=== PATIENT | male | born 1955 | race Caucasian/White ===

== ENCOUNTER 2023-09-13 16:30 | Outpatient (CLI) | payer MEDICARE, OTHER, SELFPAY ==
--- NOTE | ~2023-09-13 | MR_ITS ---
MRI of the right shoulder Technique: Axial proton-density fat-sat images, coronal proton density fat-sat and T2 fat-sat images, and sagittal T1-weighted and T2 fat-sat images were acquired. Clinical History: Pain Findings: There is [id number] AC joint degenerative change. Coracoclavicular, coracoacromial, a nd coracohumeral ligaments are intact. There is moderate to advanced tendinosis of the supraspinatus and infraspinatus tendons, without defi nite partial or full-thickness tear. Subscapularis tendon is intact, with mild tendinosis. Tendon of long head of the biceps is intact. There is probable degenerative tearing of the superior labrum with anteroposterior extension. There i s probable extension through the anterior labrum at the equator. There is a 5 mm superior para-labral cyst (series 6 image 14, series 4 image 11). There is moderate glenohumeral joint degenerative change, with inferomedial humeral head spur, chondr omalacia extensively involving the glenoid, and focal subchondral cystic change at the inferior gleno id. Inferior glenohumeral ligament is intact. There is small glenohumeral joint effusion. No fluid di stention of the subacromial/subdeltoid bursa. No muscle atrophy or edema. Impression: Degenerative SLAP tear of the labrum with extension to the anterior labrum at the equator. Associated 5 mm superior para-labral cyst, as detailed above. Moderate glenohumeral joint osteoarthritis, as detailed above. Rotator cuff tendinosis without partial or full-thickness tear. [id number] AC joint degenerative change. Reviewed, dictated and finalized at [facility]. Impression: Degenerative SLAP tear of the labrum with extension to the anterior labrum at t he equator. Associated 5 mm superior para-labral cyst, as detailed above. Moderate glenohumeral joint osteoarthritis, as detailed above. Rotator cuff tendinosis without partial or full-thickness tear. [id number] AC joint degenerative change.
== END 2023-09-13 16:31 | disposition home or self-care (01) ==
DX: S43.431A Superior glenoid labrum lesion of right shoulder, initial encounter (principal); M19.011 Primary osteoarthritis, right shoulder; M75.101 Unspecified rotator cuff tear or rupture of right shoulder, not specified as traumatic; M24.111 Other articular cartilage disorders, right shoulder; G89.29 Other chronic pain
CPT/HCPCS: 73221